=== PATIENT | female | born 1965 | race African-American/Black ===

== ENCOUNTER 2016-11-06 19:37 | Emergency (ER) | payer BC ==
[2016-11-06] MEDS ORDERED: Dexamethasone 4 mg/ml Vial ONE (19:54)
[2016-11-06] MEDS ORDERED: Ibuprofen 800 MG TAB ONE (19:54)
== END 2016-11-06 20:02 | disposition home or self-care (01) ==
LOC: BURERS 19:37
DX: J02.9 Acute pharyngitis, unspecified (principal)
CPT/HCPCS: 99283; J1100

== ENCOUNTER 2017-02-26 17:22 | Emergency (ER) | payer BC ==
[2017-02-26 17:45] LABS: Bilirubin Negative (Negative); Blood, Urine Trace (Negative); Clarity Clear (Clear); Glucose, Urine (Dipstick) Negative (Negative); Leukocyte Negative (Negative); Nitrite Negative (Negative); Protein, Urine (Dipstick) Negative (Neg-Trace); Urobilinogen 0.2 mg/dL (0.2-1.0)
[2017-02-26 17:49] LABS: Specific Gravity, Urine 1.003 (1.002-1.036)
[2017-02-26 17:54] LABS: Bacteria/HPF None Seen HPF (None Seen); Crystals/HPF None Seen HPF (Negative); Hyaline Casts/LPF NONE SEEN LPF (0-3 Hyaline); Other Casts/LPF None Seen LPF (0-3 Hyaline); Oval Fat Bodies/HPF None Seen HPF (None Seen); RBC/HPF 0-3 HPF (0-3); Renal Epithelial None Seen HPF (0-3); Sperm/HPF None Seen HPF (None Seen); Squamous Epithelial None Seen HPF (0-3); Transitional Epithelial NONE SEEN HPF (0-3); Trichomonas/HPF None Seen HPF (None Seen); WBC/HPF None Seen HPF (0-3); Yeast-All Forms None Seen HPF (None Seen)
[2017-02-26] MEDS ORDERED: Sulfameth/Trimethoprim DS 800-160mg TAB ONE (18:03)
== END 2017-02-26 18:07 | disposition home or self-care (01) ==
LOC: BURERS 17:22
DX: R30.0 Dysuria (principal); R10.9 Unspecified abdominal pain
CPT/HCPCS: 81003; 81015; 87086; 99284

== ENCOUNTER 2018-05-03 16:03 | Emergency (ER) | payer BC ==
[2018-05-03 16:34] LABS: Clarity Cloudy (Clear)
[2018-05-03 16:35] LABS: Bilirubin Negative (Negative); Blood, Urine Moderate (Negative); Glucose, Urine (Dipstick) Negative (Negative); Leukocyte Negative (Negative); Nitrite Negative (Negative); Protein, Urine (Dipstick) Negative (Neg-Trace); Specific Gravity, Urine 1.027 (1.002-1.036); pH, Urine 5.5 (5.0-9.0)
[2018-05-03 16:39] LABS: Bacteria/HPF Rare-Few HPF (None Seen); Crystals/HPF None Seen HPF (Negative); Hyaline Casts/LPF NONE SEEN LPF (0-3 Hyaline); Other Casts/LPF None Seen LPF (0-3 Hyaline); Oval Fat Bodies/HPF None Seen HPF (None Seen); Renal Epithelial None Seen HPF (0-3); Sperm/HPF None Seen HPF (None Seen); Transitional Epithelial NONE SEEN HPF (0-3); Trichomonas/HPF None Seen HPF (None Seen); WBC/HPF 0-3 HPF (0-3); Yeast-All Forms None Seen HPF (None Seen)
[2018-05-03] MEDS ORDERED: Phenazopyridine HCl 97.5 MG TABLET ONE (16:56)
== END 2018-05-03 17:02 | disposition home or self-care (01) ==
LOC: BURERS 16:03
DX: R30.0 Dysuria (principal)
CPT/HCPCS: 81003; 81015; 87086; 99283

== ENCOUNTER 2018-10-23 10:50 | Outpatient (CLI) | payer BC, OTHER ==
--- NOTE | 2018-10-23 12:35 | RAD ---
RIGHT SHOULDER 3 VIEWS: DATE: 10/23/2018. FINDINGS: No fracture, dislocation, or AC joint widening was seen. There were no periarticular calcifications. A faint bony density at the end of the clavicle superiorly could be from very old trauma. There is a very faint bony density along the upper aspect of the glenoid rim of the scapula. This could sign maribel an old injury here. MRI would be more sensitive at assessing this. Otherwise, the bones were un remarkable. IMPRESSION: No acute findings. Possible minimal old trauma. See above. POS: [facility]
== END 2018-10-23 10:51 | disposition home or self-care (01) ==
LOC: BURRAD 10:50
PROVIDERS: ATTEND Nurse Practitioner Family
DX: M25.511 Pain in right shoulder (principal)

== ENCOUNTER 2020-09-25 06:11 | Emergency (ER) | payer BC ==
[2020-09-25] MEDS ORDERED: Amlodipine 5 MG TAB ONE (07:02)
[2020-09-25 07:18] LABS: Band 1 % (5-11); Lymphocytes 25 % (21-51); MDiff Complete? YES; Mean Corpuscular HGB CONC 31.3 g/dL (32.0-36.0); Mean Corpuscular Hemoglobin 28.5 pg (27.0-31.0); Mean Corpuscular Volume 90.9 fL (78.0-98.0); Mean Platelet Volume 7.9 fL (7.4-10.4); Monocytes 4 % (0-10); Neutrophil 70 % (42-75); Platelet Count 338 thou/uL (130-400); RBC Distribution Width 13.2 % (11.5-14.5); Red Blood Cell (RBC) Count 5.26 mill/uL (4.20-5.40); White Blood Cell (WBC) Count 7.1 thou/uL (4.8-10.8)
[2020-09-25 07:20] LABS: ALT (SGPT) 8 U/L (8-55); AST (SGOT) 13 U/L (5-34); Albumin 3.9 g/dL (3.5-5.0); Alkaline Phosphatase 84 U/L (40-110); Anion Gap 13 mmol/L (10-20); BUN (Urea Nitrogen) 8 mg/dL (9.8-20.1); Bilirubin, Total 0.4 mg/dL (0.2-1.2); Calc. Creatinine Clearance 0 mL/min (70-130); Calcium 9.2 mg/dL (7.8-10.44); Carbon Dioxide 27 mmol/L (22-29); Chloride 106 mmol/L (98-107); Globulin 3.9 g/dL (2.4-3.5); Glucose 113 mg/dL (70-105); Potassium 3.3 mmol/L (3.5-5.1); Protein, Total 7.8 g/dL (6.0-8.3); Sodium 143 mmol/L (136-145)
[2020-09-25 07:29] LABS: Bilirubin Negative (Negative); Blood, Urine Negative (Negative); Clarity Clear (Clear); Glucose, Urine (Dipstick) Negative (Negative); Ketone, Urine Negative (Negative); Leukocyte Negative (Negative); Nitrite Negative (Negative); Protein, Urine (Dipstick) Trace mg/dL (Neg-Trace); Specific Gravity, Urine 1.025 (1.005-1.030)
== END 2020-09-25 08:17 | disposition home or self-care (01) ==
LOC: BURERS 06:11
DX: I10 Essential (primary) hypertension (principal); Z79.899 Other long term (current) drug therapy
CPT/HCPCS: 36415; 70450; 71045; 80053; 81003; 84484; 85025; 93005

== ENCOUNTER 2021-06-08 08:04 | Emergency (ER) | payer BC ==
[2021-06-08] MEDS ORDERED: Aspirin Chewable 81 MG TAB ONE (08:20)
[2021-06-08] MEDS ORDERED: Nitroglycerin 0.4 MG TAB 1 EACH ONE (08:22)
[2021-06-08 08:46] LABS: Hemoglobin 15.1 g/dL (12.0-16.0); Mean Corpuscular HGB CONC 32.3 g/dL (32.0-36.0); Mean Corpuscular Hemoglobin 29.9 pg (27.0-31.0); Mean Corpuscular Volume 92.4 fL (78.0-98.0); Platelet Count 320 thou/uL (130-400); RBC Distribution Width 12.8 % (11.5-14.5); Red Blood Cell (RBC) Count 5.05 mill/uL (4.20-5.40); White Blood Cell (WBC) Count 9.6 thou/uL (4.8-10.8)
[2021-06-08 08:49] LABS: ALT (SGPT) 9 U/L (8-55); AST (SGOT) 18 U/L (5-34); Albumin 4.4 g/dL (3.5-5.0); Alkaline Phosphatase 74 U/L (40-110); Anion Gap 13 mmol/L (10-20); BUN (Urea Nitrogen) 10 mg/dL (9.8-20.1); Bilirubin, Total 0.4 mg/dL (0.2-1.2); Calc. Creatinine Clearance 0 mL/min (70-130); Calcium 9.5 mg/dL (7.8-10.44); Carbon Dioxide 26 mmol/L (22-29); Chloride 103 mmol/L (98-107); Globulin 4.3 g/dL (2.4-3.5); Glucose 87 mg/dL (70-105); Lipase 15 U/L (8-78); Potassium 3.8 mmol/L (3.5-5.1); Protein, Total 8.7 g/dL (6.0-8.3); Sodium 138 mmol/L (136-145)
[2021-06-08 09:00] LABS: Lymphocytes 22 % (21-51); MDiff Complete? YES; Monocytes 5 % (0-10); Neutrophil 73 % (42-75); Platelet Morphology Comment Appears Adequate; RBC Morphology Normal
== END 2021-06-08 12:20 | disposition home or self-care (01) ==
LOC: BURERS 08:04
DX: R07.89 Other chest pain (principal); I10 Essential (primary) hypertension; E78.5 Hyperlipidemia, unspecified; E78.00 Pure hypercholesterolemia, unspecified; F17.200 Nicotine dependence, unspecified, uncomplicated
CPT/HCPCS: 36415; 71045; 80053; 83690; 84484; 85025; 93005